=== PATIENT | female | born 1940 | race Caucasian/White ===

== ENCOUNTER → 2024-01-23 16:20 | Outpatient (REF) | payer OTHER, SELFPAY | LOC: PAVMRI 16:20 | PROVIDERS: ATTENDING PHYSICIAN Orthopaedic Surgery; OTHER PHYSICIAN Obstetrics & Gynecology Gynecology | DX: M51.36 Other intervertebral disc degeneration, lumbar region (principal); M16.11 Unilateral primary osteoarthritis, right hip; M54.16 Radiculopathy, lumbar region | CPT/HCPCS: 72148 ==